=== PATIENT | male | born 1990 | race Two or more races ===

== ENCOUNTER 2023-08-26 09:20 | Emergency (ER) | payer OTHER ==
[~2023-08-26] VITALS: Ht 177.8 cm; Wt 68.0 kg
[~2023-08-26 09:20] MED LIST: TUSSI PRES-B L120 M1 PO
== END 2023-08-26 13:47 | disposition home or self-care (01) ==
LOC: ER 09:20
DX: J06.9 Acute upper respiratory infection, unspecified (principal); Z20.822 Contact with and (suspected) exposure to COVID-19

== ENCOUNTER 2024-03-21 15:59 | Emergency (ER) | payer OTHER ==
[~2024-03-21] VITALS: Ht 177.8 cm; Wt 71.7 kg
[2024-03-21] MEDS ORDERED: KETOROLAC TROMETHAMINE 30 MG VIAL ONE (16:30)
[2024-03-21] MEDS ORDERED: FAMOtidine 10 MG/ML (4ML VIAL) IV ONE (16:30)
[2024-03-21] MEDS ORDERED: ONDANSETRON HCL 2 MG/ML VIAL IV ONE (16:30)
[2024-03-21] MEDS ORDERED: KETOROLAC TROMETHAMINE 60 MG VIAL IM ONE (16:30)
[2024-03-21] MEDS ORDERED: FAMOTIDINE/PF 20 MG/2 ML VIAL ONE (16:30)
[2024-03-21] MEDS ORDERED: 0.9 % SODIUM CHLORIDE 1,000 ML IV ONE (16:30)
[2024-03-21] MEDS ORDERED: ONDANSETRON HCL 2 MG/ML VIAL ONE (16:30)
[2024-03-21 16:55] LABS: HEMATOCRIT 47.7 % (39.0-48.0); HEMOGLOBIN 16.2 g/dL (13-16.00); MEAN CELL VOLUME 96.2 fL (80.0-100.00); MEAN CORPUSCULAR HEMOGLOBIN 32.7 pg (27.00-32.0); PLATELET COUNT 232 K/uL (150-450); RED BLOOD COUNT 4.95 M/uL (4.00-6.00); RED CELL DISTRIBUTION WIDTH 14.7 % (11.5-14.5)
[2024-03-21 17:09] LABS: PARTIAL THROMBOPLASTIN TIME 29.6 SECONDS (22.0-34.0); PROTHROMBIN TIME 10.9 SECONDS (9.0-11.5)
[2024-03-21 17:12] LABS: URINE APPEARANCE Clear; URINE BILIRRUBIN Negative (NEGATIVE); URINE BLOOD Negative; URINE COLOR Yellow; URINE GLUCOSE Negative (NEGATIVE); URINE KETONE Trace (NEGATIVE); URINE LEUKOCYTE Negative; URINE NITRATE Negative; URINE PROTEIN Negative (NEGATIVE)
[2024-03-21 17:14] LABS: ALBUMIN 3.8 gm/dL (3.4-5.0); BILIRUBIN TOTAL 0.62 mg/dL (0.3-1.2); CALCIUM 8.8 mg/dL (8.5-10.1); CREATININE SERUM 1.28 mg/dL (0.70-1.30); GFR 63.95; POTASSIUM 3.71 mEq/L (3.5-5.1); TOTAL PROTEIN 6.8 gm/dL (6.4-8.2)
[2024-03-21 17:15] LABS: URINE BACTERIA 13.8 uL (0.0-1933)
[2024-03-21 17:19] LABS: URINE CAST 0.45 uL (0.0-1.40); URINE EPITHELIAL CELLS 0.9 uL (0.0-38.8); URINE RBC 0.7 uL (0.0-20.8); URINE WBC 1.3 uL (0.0-23.2)
[2024-03-21] MEDS ORDERED: PEPCID AC20 MG PO (20:20)
== END 2024-03-21 20:31 | disposition home or self-care (01) ==
LOC: ER 16:01
PROVIDERS: General Practice
DX: K52.89 Other specified noninfective gastroenteritis and colitis (principal); R10.31 Right lower quadrant pain

== ENCOUNTER 2024-04-22 10:22 | Emergency (ER) | payer OTHER ==
[~2024-04-22] VITALS: Ht 177.8 cm; Wt 70.3 kg
[~2024-04-22 10:22] MED LIST changes: +PEPCID AC20 MG PO
== END 2024-04-22 11:59 | disposition home or self-care (01) ==
LOC: ER 10:24
DX: M79.644 Pain in right finger(s) (principal)

== ENCOUNTER 2024-07-25 08:09 | Emergency (ER) | payer OTHER ==
[~2024-07-25] VITALS: Ht 177.8 cm; Wt 70.3 kg
[2024-07-25] MEDS ORDERED: ACETAMINOPHEN 500 MG GEL..CAP PO ONE (08:31)
[2024-07-25] MEDS ORDERED: METOCLOPRAMIDE HCL 5 MG/ML VIAL IM ONE (09:15)
[2024-07-25] MEDS ORDERED: METOCLOPRAMIDE HCL 5 MG/ML VIAL ONE (09:25)
[2024-07-25 09:43] LABS: HEMATOCRIT 43.9 % (39.0-48.0); MEAN CELL VOLUME 94.1 fL (80.0-100.00); MEAN CORPUSCULAR HEMOGLOBIN 32.2 pg (27.00-32.0); MEAN CORPUSCULAR HGB CONC 34.3 g/dl (32.0-36.0); PLATELET COUNT 205 K/uL (150-450); RED BLOOD COUNT 4.66 M/uL (4.00-6.00); RED CELL DISTRIBUTION WIDTH 14.2 % (11.5-14.5)
[2024-07-25 10:19] LABS: BILIRUBIN TOTAL 0.63 mg/dL (0.3-1.2); CALCIUM 8.9 mg/dL (8.5-10.1); CREATININE SERUM 0.94 mg/dL (0.70-1.30); GFR 90.81; GLOBULINA 3.2 G/DL (2.4-3.5); POTASSIUM 3.81 mEq/L (3.5-5.1); TOTAL PROTEIN 7.2 gm/dL (6.4-8.2)
== END 2024-07-25 14:53 | disposition home or self-care (01) ==
LOC: ER 08:12
PROVIDERS: General Practice
DX: R53.81 Other malaise (principal); J06.9 Acute upper respiratory infection, unspecified; Z20.822 Contact with and (suspected) exposure to COVID-19

== ENCOUNTER 2025-03-31 23:59 | Emergency (ER) | payer OTHER ==
[~2025-03-31] VITALS: Ht 177.8 cm; Wt 73.5 kg
[2025-04-01] MEDS ORDERED: KETOROLAC TROMETHAMINE 60 MG VIAL IM STA (02:13)
[2025-04-01] MEDS ORDERED: ORPHENADRINE CITRATE 30 MG/ML AMPUL IM STA (02:13)
[2025-04-01] MEDS ORDERED: ORPHENADRINE CITRATE 30 MG/ML AMPUL ONE (02:17)
[2025-04-01] MEDS ORDERED: KETO10TA2 PO (02:17)
[2025-04-01] MEDS ORDERED: NORFLEX100MG PO (02:17)
[2025-04-01] MEDS ORDERED: KETOROLAC TROMETHAMINE 60 MG VIAL IM ONE (02:18)
== END 2025-04-01 02:31 ==
LOC: ER 23:59
DX: S39.012A Strain of muscle, fascia and tendon of lower back, initial encounter (principal); X58.XXXA Exposure to other specified factors, initial encounter; Y93.89 Activity, other specified; Y92.89 Other specified places as the place of occurrence of the external cause; Y99.8 Other external cause status